=== PATIENT | male | born 1965 | race Caucasian/White ===

== ENCOUNTER → 2024-05-18 | Outpatient (CLI) | payer BC ==
--- NOTE | 2024-05-18 10:01 | CA ---
Transthoracic Echo Report Name: Perico Morales Age: 58 Gender: M : 1965 Exam Date: 05/18/2024 08:29 Exam Location: [place] [facility] Ht (in): 71 Wt (lb): 220 Ordering Physician: Doris Darling DO Attending/Referring Phys: Doris Darling DO Telegraphic Typewriter Operator Shiar Torres RDCS Procedure CPT: Indications: I47.10 Supraventricular tachycardia unspecified Cardiac Hx: Technical Quality: Technically difficult study Contrast 1: Definity Total Dose (mL): 3 Contrast 2: Total Dose (mL): MEASUREMENTS (Male / Female) Normal Values 2D ECHO LVOT Diameter 2.7 cm LV Diastolic Volume MOD BP 120.1 cm??? 67 - 155 / 56 - 104 cm??? LV Systolic Volume MOD BP 50.8 cm??? 22 - 58 / 19 - 49 cm??? LV Ejection Fraction MOD BP 57.7 % >= 55 % LV Cardiac Index MOD BP 1961.0 cm???/min???m??? LV Diastolic Volume MOD 4C 131.7 cm??? LV Systolic Volume MOD 4C 58.2 cm??? LV Ejection Fraction MOD 4C 55.8 % LV Cardiac Index MOD 4C 2078.3 cm???/min???m??? LV Diastolic Length 4C 9.7 cm LV Systolic Length 4C 7.8 cm LV Diastolic Volume MOD 2C 107.7 cm??? LV Systolic Volume MOD 2C 42.3 cm??? LV Ejection Fraction MOD 2C 60.7 % LV Cardiac Index MOD 2C 1850.4 cm???/min???m??? LV Diastolic Length 2C 9.4 cm LV Systolic Length 2C 7.4 cm LA Volume 80.4 cm??? 18 - 58 / 22 - 52 cm??? LA Volume Index 35.5 cm???/m??? 16 - 28 cm???/m??? DOPPLER AV Peak Velocity 132.2 cm/s AV Peak Gradient 7.0 mmHg AV Mean Velocity 96.5 cm/s AV Mean Gradient 4.1 mmHg AV Velocity Time Integral 25.7 cm LVOT Peak Velocity 107.7 cm/s LVOT Peak Gradient 4.6 mmHg LVOT Velocity Time Integral 20.5 cm LVOT Stroke Volume 115.1 cm??? LVOT Stroke Volume Index 52.4 ml/m??? LVOT Cardiac Index 3257.7 cm???/min???m??? AV Area Cont Eq vti 4.5 cm??? AV Area Cont Eq pk 4.6 cm??? MV Area PHT 3.6 cm??? Mitral E Point Velocity 60.2 cm/s Mitral A Point Velocity 60.8 cm/s Mitral E to A Ratio 1.0 MV Deceleration Time 210.4 ms FINDINGS Left Ventricle Left ventricular ejection fraction is estimated at 55-60 %. Left ventricular cavity size normal. Left ventricular wall thickness normal. No obvious regional wall motion abnormalities. Right Ventricle Normal right ventricular size and function. Unable to estimate the right ventricular systolic pressure. Right Atrium Normal right atrial size. Left Atrium Moderately increased left atrial volume. Mildly increased left atrial area. Mitral Valve Structurally normal mitral valve. No evidence for mitral valve prolapse. No mitral stenosis. Trace mitral regurgitation. Aortic Valve Aortic valve not well visualized. No aortic valve stenosis or regurgitation. Tricuspid Valve Structurally normal tricuspid valve. No tricuspid stenosis. No tricuspid regurgitation. Pulmonic Valve Pulmonic valve not well visualized. Pericardium No pericardial effusion. Aorta Mildly dilated aortic annulus. CONCLUSIONS This is a technically difficult study. Grossly LV size and systolic function is normal. Mild mitral and tricuspid regurgitation. No pericardial effusion. Previewed by: Dr. Clementina Pickering MD (Electronically Signed) Final Date: 18 May 2024 10:00
--- NOTE | 2024-05-18 10:28 | CA ---
Exercise Nuclear Stress Test Report Name: Perico Morales Exam Date: 05/18/2024 09:32 Exam Location: [facility] [place] Stress Ht (in): 73 Wt (lb): 220 BSA: 2.24 Ordering Phys: Doris Darling DO Referring Phys: Doris Darling DO Technologist: Glenn Jaimes Age: 58 Gender: M : 1965 Procedure CPT: Indications: I47.10 SUPRAVENTRICULAR TACHYCARD ICD-10 Codes: Patient History: Medications: ASPIRIN, TYLENOL, FAMUTIDINE, ANDROSEL Meds past 24 hrs: Pretest Chest Pain: STRESS TEST [place] Protocol Exercise Duration (min:sec): 10:[address] Depressions (mm): Angina Score: Paredes Score: Resting HR (bpm): 79 Peak HR (bpm): 173 Resting BP (mmHg): 130 / 90 Peak BP (mmHg): 199 / 91 MPHR: 164 Target HR: 139 % MPHR: 105 METS: 11.9 Total Dose: Peak Dose: Atropine: Double Product: [id number] BP Response: Stress Termination: Reached target heart rate Stress Symptoms: No chest pain or symptoms Stress Summary: ECG ANALYSIS Resting ECG: Stress ECG: CONCLUSIONS Baseline EKG revealed normal sinus rhythm with borderline voltage criteria for LVH. Patient walked for 10 minutes 15 seconds on a standard Toby protocol and achieved a maximal heart rate of 170 bpm which is well above 85% of predicted maximal. He did not have any angina. There was no arrhythmia. There was no evidence of any significant ST segment abnormality to indicate ischemia.. By EKG criteria this is a negative stress test with good exercise capacity. The nuclear scan results which are more pertinent will be reported by the radiologist Dr. Clementina Pickering MD (Electronically Signed) Final Date: 18 May 2024 10:27
--- NOTE | 2024-05-19 07:08 | NM ---
EXAMINATION TYPE: NM stress cardiolite complete DATE OF EXAM: 05/18/2024 COMPARISON: NONE CLINICAL INDICATION: Male, 58 years old with history of I47.10 SUPRAVENTRICULAR TACHYCARDIA; palpitat ions. TECHNIQUE: After the intravenous administration of 10.0 mCi Tc 99m Sestamibi - Rest images obtained 45 minutes post injection. The patient exercised using a BRONSON protocol and 1 minute prior to peak exercise was injected with 25.4 mCi Tc 99m Sestamibi - Stress images obtained 15 minutes post injecti on. FINDINGS: Targeted heart rate was achieved during performance of the study. Review of stress and rest SPECT fabiola ges demonstrates poor uptake inferior left ventricular wall could reflect artifact or old infarct. Co rrelate clinically. No convincing evidence for reversible ischemia. Gated analysis shows normal wall motion with an estimated left ventricular ejection fraction of 63 %. IMPRESSION: No scintigraphic evidence for reversible ischemia [facility], , 05/19/2024 7:06 AM
== END | disposition home or self-care (01) ==
LOC: RADNMMAIN 07:50
PROVIDERS: ATTEND Internal Medicine
DX: I08.1 Rheumatic disorders of both mitral and tricuspid valves (principal); I47.10 Supraventricular tachycardia, unspecified
CPT/HCPCS: 93017; 93306; 78452; A9500